=== PATIENT | male | born 1985 | race Caucasian/White ===

== ENCOUNTER 2016-11-26 06:45 | Emergency (ER) | payer OTHER ==
[2016-11-26] MEDS ORDERED: IOPAMIDOL 370 (76%) IV.SOLN 150 ML IV ONE (06:46)
[2016-11-26] MEDS ORDERED: PREDNISONE 20 MG TABLET ONE (07:49)
[2016-11-26] MEDS ORDERED: ALBUTEROL/IPRATROPIUM 2.5/0.5 MG 3 ML/EACH DOSE ONE (07:50)
--- NOTE | 2016-11-26 07:52 | RAD ---
EXAMINATION:CHEST - 2 VIEWS CLINICAL INDICATION: Shortness of breath. COMPARISON:none FINDINGS: The cardiomediastinal silhouette is within normal limits. There is no adenopathy identified. There is no pleural effusion. The lungs are clear. The osseous structures are unremarkable for age. IMPRESSION: Negative PA and lateral views of the chest. No acute cardiopulmonary process is identified.
[2016-11-26] MEDS ORDERED: LORAZEPAM 2 MG/ML 1ML SDV ONE (09:08)
--- NOTE | 2016-11-26 10:11 | CT ---
Examination: CT angiogram of the chest abdomen and pelvis. 3-D postprocessing. Clinical indication: Difficulty breathing. Chest discomfort. Technique: Axial images were acquired through the chest abdomen and pelvis in a standard fashion. 4 mm stacked images were reviewed in the axial, sagittal and coronal planes. Upon completion, following uneventful administration of 125 mL of Isovue 300 intravenously, axial images were acquired through the chest abdomen and pelvis in a similar fashion during an arterial phase injection. 3-D MIP post processing was performed as well at the technologist workstation. NASCET criteria was used for stenosis measurement. Comparisons:None Findings: Thorax CTA:( without and with contrast): Non-angiogram findings: The lungs exhibit mild bibasilar atelectasis. No mass or consolidation is identified. Thoracic inlet mediastinum heart pericardium pleural margins osseous structures and overlying soft tissues are normal. Abdomen CTA:( without and with contrast): Non-angiogram findings: The liver exhibits heterogeneous attenuation compatible with fatty infiltration. No discrete focal lesion is identified Spleen, pancreas, adrenals, kidneys, and visualized segments of small and large bowel are within normal limits. There is no retroperitoneal adenopathy. No inflammatory stranding is identified. Pelvic CTA: (Without and with contrast): Non-angiogram findings: There is no pelvic adenopathy or inflammatory stranding identified. The overlying soft tissues are within normal limits. The osseous structures are normal. The bladder contours are within normal limits. The prostate is not enlarged. Intermittent fluid-filled loops of small bowel are noted. Currently there is no evidence of obstruction or transitional segment. No worrisome air-fluid levels are identified. Large bowel is within normal limits. There is no inflammatory stranding adjacent to the cecum. CT angiogram findings (chest abdomen and pelvis): The thoracic and abdominal aorta are normal. There is no evidence of dissection or aneurysm. The great vessels within the thorax are normal. Pulmonary arteries well opacified throughout proximal aspect. No visible coronary vascular stations are identified. The abdominal aorta exhibits no evidence of dissection or aneurysm. No mural thrombus is identified. The aortic bifurcation and iliac vessels are unremarkable. Common femoral arteries are also within normal orbits. No gross venous abnormalities are identified. IMPRESSION: 1. No atherosclerosis, aneurysm or aortic dissection is identified. No vascular stenosis or occlusion is seen. 2. Mild bibasilar atelectasis. 3. Fatty infiltration liver. 4. Intermittent fluid-filled loops of small bowel. Findings may reflect enteritis. There is no evidence of bowel obstruction or discrete transitional segment. 5. Normal appendix. The findings were uploaded to the electronic medical record for review at approximately 10:12 AM 11/26/2016
== END 2016-11-26 10:46 | disposition home or self-care (01) ==
LOC: ED 06:45
DX: R06.02 Shortness of breath (principal); R07.9 Chest pain, unspecified; K76.0 Fatty (change of) liver, not elsewhere classified; J45.909 Unspecified asthma, uncomplicated; F17.210 Nicotine dependence, cigarettes, uncomplicated